=== PATIENT | male | born 1950 | race Caucasian/White ===

== ENCOUNTER 2017-01-06 23:37 | Emergency (ER) | payer BC ==
[2017-01-06 23:42] VITALS: TEMP 97.9
[2017-01-06 23:59] LABS: Glucose,Whole Blood 129 mg/dL (75-99)
[2017-01-07] MEDS ORDERED: hydrALAZINE HCL 20 MG/ML 1 ML VIAL IVP STA
[2017-01-07] MEDS ORDERED: LORazepam 2 MG/ML SYRINGE IV STA (00:01)
--- NOTE | 2017-01-07 00:09 | ED ---
General Adult HPI - General Source: patient, RN notes reviewed Mode of arrival: wheelchair Limitations: no limitations <Diego Caballero - Last Filed: 01/07/17 00:34> <Diego Trejo - Last Filed: 01/07/17 01:30> - General Chief complaint: Neuro Symptoms/Deficit Stated complaint: stroke symptoms Time Seen by Provider: 01/06/17 23:45 - History of Present Illness Initial comments: This is a 66-year-old male who presents to the emergency department with a past medical history significant for hypertension. Patient presents to the emergency department today complaining that at about 1:00 this afternoon he thought the left side of his lips were swollen because they felt different. Patient states he also started having tearing of the eye on that side at that hour. Patient states the symptoms progressed well today and finally when he was brushing his teeth he was having trouble spitting out the tooth base and he noticed an area that is trace was drooping on the left side. Patient denies any slurred speech. Patient denies any other areas of numbness or weakness. Patient states the left-sided face does feel different than it has been doesn't describe it is numb because he can feel his fingers touch his face. Patient denies any arm or leg weakness. Patient denies any arm or leg numbness. Patient denies any chest pain or palpitations patient denies any shortness of breath per patient denies any rashes. Patient denies any illness recently. ( Diego Caballero) - Related Data Home Medications Medication Instructions Recorded Confirmed Ascorbic Acid [Vitamin C] 1,000 mg PO DAILY 12/26/15 01/06/17 Aspirin [Adult Low Dose Aspirin EC] 81 mg PO DAILY 12/26/15 01/06/17 Calcium Carbonate [Calcium] 600 mg PO DAILY 12/26/15 01/06/17 Cholecalciferol [Vitamin D3] 5,000 unit PO DAILY 12/26/15 01/06/17 Lactobacillus Acidophilus 1 tab PO DAILY 12/26/15 01/06/17 [Acidophilus] Losartan/Hydrochlorothiazide 1 tab PO DAILY 12/26/15 01/06/17 [Losartan-Hctz 100-12.5 mg Tab] Metoprolol Succinate (ER) [Toprol 100 mg PO QAM 12/26/15 01/06/17 XL] Multivitamins, Thera [Multivitamin] 1 tab PO DAILY 12/26/15 01/06/17 [place]-3 Fatty Acids [[place]-3] 1,500 mg PO DAILY 12/26/15 01/06/17 Simvastatin [Zocor] 40 mg PO HS 12/26/15 01/06/17 Ubidecarenone [Co Q-10] 1 tab PO DAILY 12/26/15 01/06/17 Vitamin B Complex 1 tab PO DAILY 12/26/15 01/06/17 Previous Rx's Medication Instructions Recorded predniSONE 50 mg PO DAILY #14 tab 01/07/17 valACYclovir HCL [Valtrex] 1,000 mg PO Q8HR #21 tab 01/07/17 Allergies Allergy/AdvReac Type Severity Reaction Status Date / Time amlodipine AdvReac LEG Verified 01/06/17 23:42 Swelling Review of Systems ROS Other: All systems not noted in ROS Statement are negative. <Diego Caballero - Last Filed: 01/07/17 00:34> ROS Other: All systems not noted in ROS Statement are negative. <Diego Trejo - Last Filed: 01/07/17 01:30> ROS Statement: Those systems with pertinent positive or pertinent negative responses have been documented in the HPI. Past Medical History Past Medical History: Hyperlipidemia, Hypertension Additional Past Medical History / Comment(s): DIVERTULITIS History of Any Multi-Drug Resistant Organisms: None Reported Past Surgical History: Joint Replacement Additional Past Surgical History / Comment(s): RIGHT KNEE REPLACED X 2. LEFT KNEE REPLACED IN 2015 @ [facility]. Past Anesthesia/Blood Transfusion Reactions: No Reported Reaction Past Psychological History: No Psychological Hx Reported Smoking Status: Never smoker Past Alcohol Use History: None Reported Past Drug Use History: None Reported <Diego Caballero - Last Filed: 01/07/17 00:34> General Exam Limitations: no limitations <Diego Caballero - Last Filed: 01/07/17 00:34> <Diego Trejo - Last Filed: 01/07/17 01:30> - General Exam Comments Initial Comments: GENERAL: Patient is well-developed and well-nourished. Patient is nontoxic and well- hydrated and is in no acute distress. ENT: Neck is soft and supple. No significant lymphadenopathy is noted. Oropharynx is clear. Moist mucous membranes. Neck has full range of motion without eliciting any pain. EYES: The sclera were anicteric and conjunctiva were pink and moist. Extraocular movements were intact and pupils were equal round and reactive to light. Eyelids were unremarkable. PULMONARY: Unlabored respirations. Good breath sounds bilaterally. No audible rales rhonchi or wheezing was noted. CARDIOVASCULAR: There is a regular rate and rhythm without any murmurs gallops or rubs. Femoral pulses are equal bilaterally ABDOMEN: Soft and nontender with normal bowel sounds. No palpable organomegaly was noted. There is no palpable pulsatile mass. SKIN: Skin is clear with no lesions or rashes and otherwise unremarkable. NEUROLOGIC: Patient is alert and oriented x3. Patient's facial droop on the left. Forehead appears to be in involved on the left Motor and sensory are also intact. Normal speech, volume and content. Symmetrical smile. MUSCULOSKELETAL: Normal extremities with adequate strength and full range of motion. No lower extremity swelling or edema. No calf tenderness. LYMPHATICS: No significant lymphadenopathy is noted PSYCHIATRIC: Normal psychiatric evaluation. Normal interpersonal interactions appears functionally intact in deals appropriately with others. No signs of depression. No signs of anxiety. (Diego Caballero) Course <Diego Caballero - Last Filed: 01/07/17 00:34> <Diego Trejo - Last Filed: 01/07/17 01:30> Vital Signs 01/06/17 01/06/17 01/07/17 23:39 23:45 00:00 Temperature 97.9 F Pulse Rate 89 74 75 Respiratory 20 18 18 Rate Blood Pressure 230/100 246/117 211/106 O2 Sat by Pulse 96 98 98 Oximetry 01/07/17 01/07/17 01/07/17 00:15 00:30 01:00 Temperature Pulse Rate 72 82 80 Respiratory 18 18 18 Rate Blood Pressure 198/100 197/102 174/94 O2 Sat by Pulse 98 98 98 Oximetry - Reevaluation(s) Reevaluation #1: 01/07/17 01:30 Patient family spoke with greater than 50 minutes, questions are answered ( Diego Trejo) Medical Decision Making - Lab Data Result diagrams: 01/06/17 23:54 <Diego Caballero - Last Filed: 01/07/17 00:34> - Lab Data Result diagrams: 01/06/17 23:54 01/06/17 23:54 - Radiology Data Radiology results: report reviewed (CT brain negative for acute disease), image reviewed <Diego Trejo - Last Filed: 01/07/17 01:30> - Medical Decision Making EKG shows sinus rhythm with occasional PVC at 71 bpm [place] interval is 164 QRS is 72 QT interval 398 QTC is 432. Patient's EKG shows some T-wave inversions in lead 3 and aVF. Patient also has a PVC. Dr. Trejo will be taking over care of this patient at 1 PM (Diego Caballero) 66 male ER for evaluation of left-sided facial numbness, this appears include his forehead, patient also cannot close his left eye, CT is negative, patient's blood pressure is labile. Patient will be discharged home on valacyclovir and steroids, to continue blood pressure control. (Diego Trejo) - Lab Data Lab Results 01/06/17 01/06/17 01/06/17 Range/Units 23:54 23:54 23:54 WBC 8.8 (3.8-10.6) k/uL RBC 5.21 (4.30-5.90) m/uL Hgb 14.8 (13.0-17.5) gm/dL Hct 42.9 (39.0-53.0) % MCV 82.3 (80.0-100.0) fL MCH 28.5 (25.0-35.0) pg MCHC 34.6 (31.0-37.0) g/dL RDW 13.7 (11.5-15.5) % Plt Count 194 (150-450) k/uL Neutrophils % 62 % Lymphocytes % 21 % Monocytes % 9 % Eosinophils % 5 % Basophils % 1 % Neutrophils # 5.4 (1.3-7.7) k/uL Lymphocytes # 1.8 (1.0-4.8) k/uL Monocytes # 0.8 (0-1.0) k/uL Eosinophils # 0.5 (0-0.7) k/uL Basophils # 0.1 (0-0.2) k/uL Hyperchromasia Slight PT (9.0-12.0) sec INR (<1.1) APTT (22.0-30.0) sec Sodium 142 (137-145) mmol/L Potassium 3.8 (3.5-5.1) mmol/L Chloride 105 (98-107) mmol/L Carbon Dioxide 26 (22-30) mmol/L Anion Gap 11 mmol/L BUN 23 H (9-20) mg/dL Creatinine 0.90 (0.66-1.25) mg/dL Est GFR (MDRD) Af Amer >60 (>60 ml/min/1.73 sqM) Est GFR (MDRD) Non-Af >60 (>60 ml/min/1.73 sqM) Glucose 121 H (74-99) mg/dL POC Glucose (mg/dL) (75-99) mg/dL POC Glu Siderographist ID Calcium 9.6 (8.4-10.2) mg/dL Total Bilirubin 0.7 (0.2-1.3) mg/dL AST 39 (17-59) U/L ALT 36 (21-72) U/L Alkaline Phosphatase 74 (38-126) U/L Total Creatine Kinase 182 H (55-170) U/L CK-MB (CK-2) 2.6 H* (0.0-2.4) ng/mL CK-MB (CK-2) Rel Index 1.4 Troponin I <0.012 (0.000-0.034) ng/mL Total Protein 6.9 (6.3-8.2) g/dL Albumin 4.2 (3.5-5.0) g/dL 01/06/17 01/06/17 Range/Units 23:54 23:57 WBC (3.8-10.6) k/uL RBC (4.30-5.90) m/uL Hgb (13.0-17.5) gm/dL Hct (39.0-53.0) % MCV (80.0-100.0) fL MCH (25.0-35.0) pg MCHC (31.0-37.0) g/dL RDW (11.5-15.5) % Plt Count (150-450) k/uL Neutrophils % % Lymphocytes % % Monocytes % % Eosinophils % % Basophils % % Neutrophils # (1.3-7.7) k/uL Lymphocytes # (1.0-4.8) k/uL Monocytes # (0-1.0) k/uL Eosinophils # (0-0.7) k/uL Basophils # (0-0.2) k/uL Hyperchromasia PT 10.3 (9.0-12.0) sec INR 1.0 (<1.1) APTT 24.7 (22.0-30.0) sec Sodium (137-145) mmol/L Potassium (3.5-5.1) mmol/L Chloride (98-107) mmol/L Carbon Dioxide (22-30) mmol/L Anion Gap mmol/L BUN (9-20) mg/dL Creatinine (0.66-1.25) mg/dL Est GFR (MDRD) Af Amer (>60 ml/min/1.73 sqM) Est GFR (MDRD) Non-Af (>60 ml/min/1.73 sqM) Glucose (74-99) mg/dL POC Glucose (mg/dL) 129 H (75-99) mg/dL POC Glu Siderographist ID Hartwick, Maria Teresa Calcium (8.4-10.2) mg/dL Total Bilirubin (0.2-1.3) mg/dL AST (17-59) U/L ALT (21-72) U/L Alkaline Phosphatase (38-126) U/L Total Creatine Kinase (55-170) U/L CK-MB (CK-2) (0.0-2.4) ng/mL CK-MB (CK-2) Rel Index Troponin I (0.000-0.034) ng/mL Total Protein (6.3-8.2) g/dL Albumin (3.5-5.0) g/dL Disposition <Diego Caballero - Last Filed: 01/07/17 00:34> <Diego Trejo - Last Filed: 01/07/17 01:30> Clinical Impression: Louis palsy Disposition: HOME SELF-CARE Condition: Good Instructions: Louis Palsy (ED) Prescriptions: predniSONE 50 mg PO DAILY #14 tab valACYclovir HCL [Valtrex] 1,000 mg PO Q8HR #21 tab Referrals: Luis Dos Santos MD [Primary Care Provider] - 1-2 days
[2017-01-07 00:23] LABS: Basophils # (A) 0.1 k/uL (0-0.2); Basophils % (A) 1 %; CH 30.1; CHCM 36.7; Eosinophils # (A) 0.5 k/uL (0-0.7); Eosinophils % (A) 5 %; HCT 42.9 % (39.0-53.0); HDW 3.35; HGB 14.8 gm/dL (13.0-17.5); Hyperchromasia Slight; Luc # (Auto) 0.25; Luc % (Auto) 3; Lymphocytes # (A) 1.8 k/uL (1.0-4.8); Lymphocytes % (A) 21 %; MCH 28.5 pg (25.0-35.0); MCHC 34.6 g/dL (31.0-37.0); MCV 82.3 fL (80.0-100.0); Mean Platelet Volume 7.1; Monocytes # (A) 0.8 k/uL (0-1.0); Monocytes % (A) 9 %; Neutrophils # (A) 5.4 k/uL (1.3-7.7); Neutrophils % (A) 62 %; RBC 5.21 m/uL (4.30-5.90); RDW 13.7 % (11.5-15.5); WBC 8.8 k/uL (3.8-10.6); WBC (Perox) 8.98
--- NOTE | 2017-01-07 00:32 | CT ---
EXAM: CT Head Without Intravenous Contrast. CLINICAL HISTORY: Acute onset left-sided facial droop TECHNIQUE: Axial computed tomography images of the head/brain without intravenous contrast. CTDI is 57.4 mGy and DLP is 1012.7 mGy-cm This CT exam was performed using one or more of the following dose reduction techniques: automated exposure control, adjustment of the mA and/or kV according to patient size, and/or use of iterative reconstruction technique. Coronal and sagittal reformatted images were created and reviewed. COMPARISON: No relevant prior studies available. FINDINGS: Brain: Mild volume loss and mild hypoattenuation in the periventricular/subcortical white matter which likely reflect chronic microvascular ischemic change. No intracranial hemorrhage or CT evidence of acute cortical infarction. No extra-axial fluid collection. Ventricles: Unremarkable. No midline shift or ventriculomegaly. Bones/joints: Unremarkable. No acute fracture. Soft tissues: Unremarkable. Vasculature: Atherosclerotic vascular calcifications in the carotid siphons. Sinuses: Unremarkable as visualized. No air-fluid level. Mastoid air cells: Unremarkable as visualized. No mastoid effusion. IMPRESSION: 1. No midline shift, hemorrhage, or CT evidence of acute cortical infarction. 2. Mild volume loss, chronic microvascular ischemic change, and atherosclerotic vascular disease.
[2017-01-07 00:36] LABS: Partial Thromboplastin Time 24.7 sec (22.0-30.0); Prothrombin Time 10.3 sec (9.0-12.0)
[2017-01-07 00:39] LABS: ALT 36 U/L (21-72); AST 39 U/L (17-59); Alkaline Phosphatase 74 U/L (38-126); Anion Gap 11 mmol/L; Blood Urea Nitrogen 23 mg/dL (9-20); Calcium 9.6 mg/dL (8.4-10.2); Carbon Dioxide 26 mmol/L (22-30); Chloride 105 mmol/L (98-107); Glucose 121 mg/dL (74-99); Non-African American GFR(MDRD) >60 (>60 ml/min/1.73 sqM); Potassium 3.8 mmol/L (3.5-5.1); Sodium 142 mmol/L (137-145); Total Bilirubin 0.7 mg/dL (0.2-1.3); Total Protein 6.9 g/dL (6.3-8.2)
[2017-01-07 00:46] LABS: Creatine Kinase 182 U/L (55-170)
--- NOTE | 2017-01-07 00:54 | XR ---
EXAM: XR Chest, 2 Views. CLINICAL HISTORY: Altered mental status TECHNIQUE: Frontal and lateral views of the chest. COMPARISON: No relevant prior studies available. FINDINGS: Lungs: Unremarkable. No consolidation. Pleural space: Unremarkable. No pneumothorax. Heart: Unremarkable. No cardiomegaly. Mediastinum: Unremarkable. Bones/joints: Mild chronic appearing ventral height loss in mid thoracic vertebral bodies. IMPRESSION: No acute cardiopulmonary process.
[2017-01-07 00:59] LABS: Troponin I <0.012 ng/mL (0.000-0.034)
[2017-01-07 01:02] LABS: Creatine Kinase MB 2.6 ng/mL (0.0-2.4)
[2017-01-07] MEDS ORDERED: methylPREDNISolone SOD SUCCI 125 MG/2 ML VIAL IV STA (01:25)
[2017-01-07] MEDS ORDERED: valACYclovir 500 MG TAB PO STA (01:26)
[2017-01-07 01:46] VITALS: BP 165/94; PULSE 74; RESP 16
== END 2017-01-07 01:46 | disposition home or self-care (01) ==
LOC: EC 23:37
DX: G51.0 Bell's palsy (principal); E78.5 Hyperlipidemia, unspecified; I10 Essential (primary) hypertension; Z79.82 Long term (current) use of aspirin; Z79.899 Other long term (current) drug therapy; Z88.8 Allergy status to other drugs, medicaments and biological substances
CPT/HCPCS: 36415; 80053; 82550; 82553; 84484; 85025; 85610; 85730; 71020; 70450; 99285; 96374; 96375 ×2; J2060; J0360; J2930; 93005

== ENCOUNTER → 2018-02-25 | Outpatient (CLI) | payer MEDICARE, OTHER ==
--- NOTE | 2018-02-25 18:22 | CONS ---
CONSULTATION REASON FOR CONSULTATION: Sleep apnea. This is a pleasant 67-year-old male patient who was referred to me for evaluation of sleep apnea. The patient has loud snoring and has excessive fatigue and sleepiness during the day and he has excessive nocturia, as the patient gets up multiple times for urination. His sleep is fragmented essentially due to urination. It is not clear whether this is related to sleep apnea or if there is any problem with the prostate and incomplete bladder emptying, as the patient has had some issues with elevated PSA in the past. He goes to bed around 11 p.m. and he wakes up periodically throughout the night; he ultimately gets out of bed between 6:30 and 7:00 in the morning. No gasping for air. No choking sensation at bedtime. No grinding of the teeth. He wakes up occasionally with a dry mouth. No anxiety or panic attacks. No palpitations. No night terrors. No hallucinations. No nightmares. He does not sleep well, and he has been told by family members that he has apneas. For that reason, the patient was referred to me for further evaluation. PAST MEDICAL HISTORY: 1. Hypertension. 2. Osteoarthritis. 3. Coronary artery disease, non-occlusive. 4. Carotid artery disease, non-occlusive. PAST SURGICAL HISTORY: 1. Right leg toe fusion. 2. Right and left total knee replacement. DRUG ALLERGIES: NOT KNOWN. OUTPATIENT MEDICATION LIST: 1. Zocor 40 mg p.o. daily. 2. Losartan/hydrochlorothiazide 100/25 one tablet a day. 3. Metoprolol 100 mg p.o. daily. 4. Nifedipine 30 daily. 5. Calcium 600 mg p.o. daily. 6. Niacin 500 mg p.o. daily. 7. Sachse-3. 8. Vitamin C. 9. Low-dose aspirin. 10.Vitamin D3. 11.Coenzyme Q. SOCIAL HISTORY: The patient is a nonsmoker. No history of alcoholism. No history of IV drugs. FAMILY HISTORY: Negative for obstructive sleep apnea syndrome. REVIEW OF SYSTEMS: Twelve-point review of systems was done. The positive findings are all mentioned above in the history of present illness. Of significance is the absence of any grinding of the teeth. No sleepwalking. No anxiety or panic attacks. No palpitation. No heartburn. No anxiety or depression. No claustrophobia. No sleep paralysis, hallucinations or cataplexy. The patient sleeps on his side. He has had a total of 10 pounds' weight gain over the past one year. PHYSICAL EXAMINATION: BP is 149/87, pulse 72, respirations 16, temperature 97.9, saturation 94% on room air. Weight is 259. Height is 5 feet 6 inches and BMI 34.7. Neck size is 18 inches. GENERAL APPEARANCE: Calm,comfortable. No acute distress. Head is atraumatic, normocephalic. Neck is short, supple. Crowding of posterior pharynx. Mallampati class IV. No goiter or neck masses. LUNGS: Diminished breath sounds; otherwise clear. Heart sounds are regular rate and rhythm. Normal S1, S2. No S3. No S4. No murmurs. ABDOMEN: Soft, nontender. No organomegaly. EXTREMITIES: No edema. No cyanosis or clubbing. NEUROLOGIC: Alert and oriented x3. There is no focal neurological deficit. PSYCHIATRIC: Appropriate mood and affect. SKIN: Negative for any wounds or ulceration. IMPRESSION: 1. Obstructive sleep apnea clinically suspected, currently under investigation. The patient has snoring, witnessed apneas and sleep fragmentation with an [place] score of 12. 2. Hypersomnia; [place] of 12. 3. Nocturia. 4. Obesity with body mass index of 34.7 with interval 10-pound weight gain over the past one year. 5. Hypertension. 6. Coronary artery disease, non-occlusive. 7. Carotid artery disease, non-occlusive. 8. Degenerative arthritis. PLAN: 1. Encourage weight loss. 2. Issues related to sleep hygiene were discussed. 3. Consider treatment for symptoms of prostatism that should help with sleep fragmentation and improvement in sleep quality. 4. Will proceed with a screening polysomnogram, looking for any significant sleep apnea, and if positive, will treat accordingly. MMODL / IJN: [id number] /
== END | disposition home or self-care (01) ==
LOC: SLEEP 10:07
PROVIDERS: ATTEND Internal Medicine Critical Care Medicine
DX: R06.83 Snoring (principal); R35.1 Nocturia; G47.10 Hypersomnia, unspecified; E66.9 Obesity, unspecified; R53.83 Other fatigue; I10 Essential (primary) hypertension; I25.10 Atherosclerotic heart disease of native coronary artery without angina pectoris; M19.90 Unspecified osteoarthritis, unspecified site; I77.9 Disorder of arteries and arterioles, unspecified; Z96.653 Presence of artificial knee joint, bilateral; Z68.34 Body mass index [BMI] 34.0-34.9, adult; Z79.899 Other long term (current) drug therapy; Z79.82 Long term (current) use of aspirin
CPT/HCPCS: 99211

== ENCOUNTER → 2019-11-04 | Outpatient (CLI) | payer OTHER ==
--- NOTE | 2019-11-04 08:19 | US ---
EXAMINATION TYPE: US abdomen complete DATE OF EXAM: 11/04/2019 COMPARISON: NONE CLINICAL HISTORY: R10.13 EPIGASTRIC PAIN. Epigastric pain, NPO EXAM MEASUREMENTS: Liver Length: 17.2 cm Gallbladder Wall: 0.2 cm CBD: 0.4 cm Spleen: 12.5 cm Right Kidney: 11.3 x 5.9 x 5.9 cm Left Kidney: 11.9 x 5.9 x 5.0 cm Limited due to overlying bowel gas Pancreas: obscured by overlying bowel gas Liver: Increased attenuation, decreased visualization of vessels suggestive of fatty infiltrate. Ap pears coarse. Liver cysts seen: 1= anterior left lobe - 1.0 x 0.9 x 0.7 cm. 2- Anterior right lobe - 0.9 x 0.7 x 0.7 cm Gallbladder: echogenic nonmobile nonshadowing lesion seen adjacent to GB = 0.4 cm Evidence for sonographic Harp's sign: neg CBD: wnl Spleen: wnl Right Kidney: Mid lower cystic appearing lesion = 2.3 x 2.7 x 2.2 cm Left Kidney: anechoic lesion seen in sinus = 1.7 x 0.6 cm. Lower pole cystic appearing lesion = 1.8 x 2.2 x 1.8 cm Upper IVC: Obscured by overlying bowel gas Abd Aorta: No AAA visualized, limited visualization IMPRESSION: 1. Liver is coarsened in echo pattern which can be seen with hepatic steatosis, diffuse hepatocellula r disease or hepatitis correlate clinically. 2. Nonmobile nonshadowing echogenic structure measuring 4 mm within the gallbladder most likely relat ed to a polyp. 3. Bilateral renal cysts.
== END | disposition home or self-care (01) ==
LOC: RADUSWWP 07:34
PROVIDERS: ATTEND Internal Medicine Gastroenterology
DX: Q61.02 Congenital multiple renal cysts (principal)
CPT/HCPCS: 76700

== ENCOUNTER → 2020-05-02 | Outpatient (CLI) | payer MEDICARE ==
--- NOTE | 2020-05-04 10:50 | P.ARTDOP ---
Arterial Doppler LOWER EXTREMITY ARTERIAL DOPPLER: DATE OF SERVICE: 05/02/2020 Reason for study: Bilateral leg weakness. Doppler waveforms: Multiphasic bilaterally throughout. Pulse volume recording: []. Pressure gradients: None. Ankle-brachial indices: Greater than 1 bilaterally. Toe brachial indices: 0.85 on the right, 0.95 on the left Impression: Normal study.
== END | disposition home or self-care (01) ==
LOC: RADUSWWP 12:33
PROVIDERS: ATTEND Internal Medicine
DX: I70.213 Atherosclerosis of native arteries of extremities with intermittent claudication, bilateral legs (principal)
CPT/HCPCS: 93922

== ENCOUNTER → 2020-10-11 | Outpatient (CLI) | payer MEDICARE, OTHER | END | disposition home or self-care (01) | LOC: RADECHMAIN 11:53 | PROVIDERS: ATTEND Internal Medicine | DX: I49.3 Ventricular premature depolarization (principal); I47.1 Supraventricular tachycardia; I49.02 Ventricular flutter | CPT/HCPCS: 93225; 93226 ==

== ENCOUNTER 2020-12-29 10:33 | Day surgery (SDC) | payer MEDICARE, OTHER ==
[2020-12-27 14:07] VITALS: BMI 33.6
[~2020-12-29 10:33] MED LIST: ALPRAZolam 0.25 MG TAB PO PRN; ALPRAZolam 0.5 MG TAB PO PRN; ASPIRIN 325 MG TAB PO ONE; ATORVASTATIN 80 MG TAB PO ONE; NITROGLYCERIN SL TABS 0.4 MG TAB SUBLINGUAL PRN; SODIUM CHLORIDE 0.9% 1,000 ML in EMPTY BAG 1 BAG IV ONE
[2020-12-29 11:07] LABS: Glucose,Whole Blood 129 mg/dL (75-99)
[2020-12-29 11:17] VITALS: TEMP 97.9
[2020-12-29 11:43] LABS: Basophils # (A) 0.1 k/uL (0-0.2); Basophils % (A) 1 %; Eosinophils # (A) 0.5 k/uL (0-0.7); Eosinophils % (A) 6 %; HCT 40.7 % (39.0-53.0); HGB 14.4 gm/dL (13.0-17.5); Hyperchromasia Slight; Lymphocytes # (A) 1.4 k/uL (1.0-4.8); Lymphocytes % (A) 17 %; MCH 29.2 pg (25.0-35.0); MCHC 35.3 g/dL (31.0-37.0); MCV 82.7 fL (80.0-100.0); Mean Platelet Volume 7.6; Monocytes # (A) 0.6 k/uL (0-1.0); Monocytes % (A) 7 %; Neutrophils # (A) 5.5 k/uL (1.3-7.7); Neutrophils % (A) 68 %; Platelet Count 219 k/uL (150-450); RBC 4.92 m/uL (4.30-5.90); RDW 13.6 % (11.5-15.5); WBC 8.1 k/uL (3.8-10.6)
[2020-12-29] MEDS ORDERED: LIDOCAINE 1% INJ 10MG/ML (20 ML MDV) ONE (11:59)
[2020-12-29 12:00] LABS: African American GFR (CKD) >90 (>60 ml/min/1.73 sqM); Anion Gap 8 mmol/L; Blood Urea Nitrogen 20 mg/dL (9-20); Calcium 9.9 mg/dL (8.4-10.2); Carbon Dioxide 29 mmol/L (22-30); Chloride 103 mmol/L (98-107); Glucose 122 mg/dL (74-99); Non-African American GFR(CKD) >90 (>60 ml/min/1.73 sqM); Potassium 3.7 mmol/L (3.5-5.1); Sodium 140 mmol/L (137-145)
[2020-12-29] MEDS ORDERED: VERAPAMIL 2.5 MG/ML 2 ML AMP ONE (12:00)
[2020-12-29] MEDS ORDERED: HEPARIN SODIUM 1,000 UN/ML (10ML VL) ONE (12:00)
[2020-12-29] MEDS ORDERED: fentaNYL (PF) 50 MCG/ML 2 ML AMP ONE (12:00)
[2020-12-29] MEDS ORDERED: LIDOCAINE 1% INJ 10MG/ML (20 ML MDV) SQ ONE (12:10)
[2020-12-29] MEDS ORDERED: VERAPAMIL SYRINGE (5 MG/10 ML) INTRAARTER ONE ×2 (12:11→12:30)
[2020-12-29] MEDS ORDERED: MIDAZOLAM 2 MG/2 ML VIAL IV ONE (12:11)
[2020-12-29] MEDS: fentaNYL (PF) 50 MCG/ML 2 ML AMP IV ONE ×2 (12:11→12:14)
[2020-12-29] MEDS ORDERED: IOPAMIDOL-370 125ML BTL INJ ONE (12:27)
[2020-12-29] MEDS ORDERED: RX INFO: IV CONTRAST WAS GIVEN 1 EACH MISC MISCELLANE PRN (12:40)
[2020-12-29] MEDS ORDERED: SODIUM CHLORIDE 0.9% 1,000 ML IV SCH (12:45)
[2020-12-29 13:37] VITALS: RESP 16
--- NOTE | 2020-12-29 13:44 | CC ---
CARDIAC CATHETERIZATION REPORT DATE OF SERVICE: December 29, 2020. PERFORMING PHYSICIAN: Dangelo Leach MD. PROCEDURE PERFORMED: 1. Selective right and left coronary angiogram. 2. Left heart catheterization. INDICATION: This is a 70-year-old gentleman with diabetes and hypertension and dyslipidemia and known CAD with the last heart catheterization in 2019 showing chronic total occlusion of the left circumflex with intermediate disease involving the RCA and LAD was seen in the office recently for increasing shortness of breath with exertion. At that point, he underwent myocardial perfusion imaging stress test and that picked up an anterior reversible defect concerning for LAD disease. Because of that, a heart catheterization was advised. APPROACH: Right radial artery. COMPLICATION: None. LEVEL OF SEDATION: Moderate with a sedation length of a 26 minutes. PROCEDURE DESCRIPTION: After obtaining an informed consent, the patient was brought to the cardiac cath lab nurse. The right radial artery was cannulated using micropuncture technique and a micropuncture wire passed easily then I placed a 6-Luxembourgish sheath at the right radial artery. I gave the patient 2 mg of verapamil IA and 10,000 units of heparin IV. Selective right and left coronary angiogram performed with multipurpose for the right coronary artery and JL3.5 for the left coronary system. Please note that engaging the right coronary artery with JR4 was extremely difficult because of tortuosity in the right subclavian artery. After that I did leave heart catheterization using 5-Lux[place]bourgish pigtail catheter. The procedure was completed without any complication. SELECTIVE CORONARY ANGIOGRAM: 1. The right coronary artery is a large caliber vessel and it is a dominant vessel. The RCA appeared to be calcified with tubular lesion in the midportion appeared to be in the range of 80%. The RCA distally has intermediate lesion appeared to be in the range of 60% to 70%. then after that bifurcates into PDA and PLV branches both appeared to be angiographically normal. Injecting the right coronary artery showed collateral to the left circumflex coronary artery. 2. The Left Main: The left main is calcified and appeared to have mild disease only. It bifurcates into left circumflex and left anterior descending artery. 3. The left circumflex is a moderate caliber vessel, seems to be chronically occluded and fills by ipsilateral and contralateral collaterals. 4. The ramus intermedius is a large caliber vessel with mild disease in its ostium. 5. The LAD is a large caliber vessel. The proximal LAD has eccentric lesion appeared to be in the range of 80%. The mid and distal LAD appeared to be angiographically normal. The LAD is calcified. HEMODYNAMICS: The LVEDP was 10 to 12 mmHg without significant gradient across the aortic valve. CONCLUSION: 1. Calcified right and left coronary systems. 2. Severe disease involving the mid right coronary artery with a tubular lesion appeared to be in the range of 70% to 80%. 3. Normal left main coronary artery. 4. 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 5. Severe eccentric focal lesion involving the proximal left anterior descending artery. POSTPROCEDURE MANAGEMENT: 1. Giving the above anatomy, I recommended getting an opinion from cardiothoracic surgeon for the evaluation of CABG. 2. If the patient deemed to be high risk for the surgery, I would consider doing PCI of the LAD with probably adjunctive use of atherectomy. 3. Follow up with the patient. MMDAISYL / LACHON: [id number] /
--- NOTE | 2020-12-29 13:52 | LTR ---
December 29, 2020 Re: Jonathan Boogie Dear Dr. Murillo: Mr. Jonathan Boogie was seen in the office recently for increasing shortness of breath with exertion. He is known to have coronary artery disease and also he is known to have diabetes and hypertension and dyslipidemia. We performed myocardial perfusion imaging stress test on him in the office and that revealed reversible defect involving the LAD. Because of that, we advised him to undergo a heart catheterization. The heart catheterization revealed severe disease involving the LAD with occluded left circumflex and also severe disease involving the right coronary artery. Giving his anatomy which include triple-vessel CAD, I advised taking the opinion from a surgeon regarding the evaluation of coronary artery bypass grafting. I want to thank you for allowing me to participate in his care and please do not hesitate to call if any question or concern. Sincerely, MD DANIEL Estrella / CONNOR: [id number] /
[2020-12-29 17:12] VITALS: BP 143/71; PULSE 62
== END 2020-12-29 17:28 | disposition home or self-care (01) ==
LOC: CATHCVL 10:33
PROVIDERS: ATTEND Internal Medicine Interventional Cardiology
DX: I25.10 Atherosclerotic heart disease of native coronary artery without angina pectoris (principal); I25.82 Chronic total occlusion of coronary artery; I77.1 Stricture of artery; R94.39 Abnormal result of other cardiovascular function study; R06.02 Shortness of breath; R42 Dizziness and giddiness; I10 Essential (primary) hypertension; E78.5 Hyperlipidemia, unspecified; I47.1 Supraventricular tachycardia; E78.00 Pure hypercholesterolemia, unspecified; E66.9 Obesity, unspecified; G47.30 Sleep apnea, unspecified; E11.9 Type 2 diabetes mellitus without complications; Z68.33 Body mass index [BMI] 33.0-33.9, adult; Z99.89 Dependence on other enabling machines and devices; Z79.82 Long term (current) use of aspirin; Z79.899 Other long term (current) drug therapy; Z79.84 Long term (current) use of oral hypoglycemic drugs
CPT/HCPCS: 93458; 80048; 85025; J2250; J2001; J3010; J1644; Q9967

== ENCOUNTER → 2021-02-03 | Outpatient (CLI) | payer MEDICARE, OTHER ==
--- NOTE | 2021-02-03 14:00 | US ---
EXAMINATION TYPE: US venous doppler duplex LE RT DATE OF EXAM: 02/03/2021 1:47 PM COMPARISON: NONE CLINICAL HISTORY: Swelling of RLE with lump R22.41. SIDE PERFORMED: Right TECHNIQUE: The lower extremity deep venous system is examined utilizing real time linear array sonog melonie with graded compression, doppler sonography and color-flow sonography. VESSELS IMAGED: Common Femoral Vein Deep Femoral Vein Greater Saphenous Vein * Femoral Vein Popliteal Vein Small Saphenous Vein * Proximal Calf Veins (* superficial vessels) Right Leg: Negative for DVT IMPRESSION: No evidence for DVT at this time.
--- NOTE | 2021-02-03 15:16 | XR ---
Right knee HISTORY: Right lower extremity mass, R 22.41 3 views of the right knee Patient is status post right knee arthroplasty. Ossific densities about the knee are well-corticated and not felt to be acute. Alignment is maintained. There is no acute fracture or dislocation. Suprapa tellar increased attenuation is present within the soft tissues, there is some soft tissue swelling. IMPRESSION: Postop changes. Joint effusion.
== END | disposition home or self-care (01) ==
LOC: RADUSWWP 13:18
PROVIDERS: ATTEND Internal Medicine
DX: R22.41 Localized swelling, mass and lump, right lower limb (principal); M25.461 Effusion, right knee; Z96.651 Presence of right artificial knee joint

== ENCOUNTER → 2021-08-08 | Outpatient (CLI) | payer MEDICARE, OTHER ==
--- NOTE | 2021-08-08 13:02 | XR ---
KUB HISTORY: R 10.31 From a KUB submitted on 2 images Osteoarthritic changes present within the hips, degenerative disc disease in the visualized spine. Th ere is no pathologic calcification. No evident bowel obstruction or pneumoperitoneum. Suspect some va scular calcification in the pelvis. IMPRESSION: Nonspecific findings
== END | disposition home or self-care (01) ==
LOC: RADXRMAIN 12:06
PROVIDERS: ATTEND Nurse Practitioner Gerontology
DX: R10.31 Right lower quadrant pain (principal)
CPT/HCPCS: 74018

== ENCOUNTER → 2021-12-15 | Outpatient (CLI) | payer MEDICARE, OTHER | END | disposition home or self-care (01) | LOC: RADUSWWP 09:43 | PROVIDERS: ATTEND Internal Medicine Geriatric Medicine | DX: M79.661 Pain in right lower leg (principal); M79.662 Pain in left lower leg; Z95.820 Peripheral vascular angioplasty status with implants and grafts | CPT/HCPCS: 93922 ==